=== PATIENT | female | born 1995 | race Caucasian/White ===

== ENCOUNTER 2017-04-20 13:29 | Inpatient (IN) | payer BC, OTHER ==
[2017-04-20 14:04] LABS: APPEARANCE,URINE CLEAR; BILIRUBIN,URINE NEGATIVE (NEGATIVE); GLUCOSE, URINE NEGATIVE (NEGATIVE); KETONES,URINE NEGATIVE (NEGATIVE); LEUKOCYTE ESTERASE,URINE NEGATIVE (NEGATIVE); NITRITE,URINE NEGATIVE (NEGATIVE); PROTEIN,URINE NEGATIVE (NEGATIVE); URINE SPECIFIC GRAVITY 1.003; UROBILINOGEN,URINE NEGATIVE mg/dL (<2.0)
[2017-04-20 14:09] LABS: AMNISURE (ROM) POSITIVE (NEGATIVE)
[2017-04-20] MEDS ORDERED: PENICILLIN G POTASSIUM 5,000,000 UNIT in DEXTROSE 5%-WATER 100 ML IV ONE (14:15)
[2017-04-20] MEDS ORDERED: RINGERS SOLUTION,LACTATED 1,000 ML IV PRN (14:15)
[2017-04-20] MEDS ORDERED: PENICILLIN G-K 5 MILLION UNIT VIAL ONE ×2 (14:20→18:10)
[2017-04-20 14:35] LABS: URINE BARBITURATES SCREEN NEGATIVE; URINE METHADONE SCREEN NEGATIVE; URINE OPIATES LOW NEGATIVE; URINE PHENCYCLIDINE SCREEN NEGATIVE
[2017-04-20 15:45] LABS: ABSOLUTE LYMPHOCYTES (AUTO) 1.5 10^3/uL (0.5-4.7); ABSOLUTE MONOCYTES (AUTO) 0.9 10^3/uL (0.1-1.4); BASOPHILS % (AUTO) 0.2 % (0-2); EOSINOPHILS % (AUTO) 0.2 % (0-6); HEMOGLOBIN 12.2 g/dL (12.0-15.5); HGB HCT DIFFERENCE 1.6; MEAN CORPUSCULAR HEMOGLOBIN 29.8 pg (27.0-33.4); MEAN CORPUSCULAR HGB CONC 34.9 g/dL (32.0-36.0); MEAN CORPUSCULAR VOLUME 85 fl (80-97); RED CELL DISTRIBUTION WIDTH 13.3 % (11.5-14.0); SEGMENTED NEUTROPHILS % (AUTO) 83.6 % (42-78); WHITE BLOOD COUNT 15.5 10^3/uL (4.0-10.5)
[2017-04-20] MEDS ORDERED: OXYTOCIN/NORMAL SALINE 20 UNIT/1,000 ML RTUINJ ONE (16:03)
[2017-04-20] MEDS ORDERED: OXYTOCIN/NORMAL SALINE 20 UNIT/1,000 ML RTUINJ IV PRN (16:24)
[2017-04-20] MEDS ORDERED: NALBUPHINE HCL INJ 10 MG/1 ML AMPULE ONE (17:46)
[2017-04-20] MEDS ORDERED: NALBUPHINE HCL INJ 10 MG/1 ML AMPULE INJ ONE (17:47)
[2017-04-20] MEDS ORDERED: PHENYLEPHRINE HCL INJ/PF 10 MG/1 ML SDV ONE (18:29)
[2017-04-20] MEDS ORDERED: EPHEDRINE SULFATE INJ 50 MG/1 ML AMPULE ONE (18:29)
[2017-04-20] MEDS ORDERED: MISOPROSTOL 0.2 MG TABLET ONE (18:29)
[2017-04-20] MEDS ORDERED: FENTANYL/BUPIVACAINE/NS/PF 0 MCG/0 ML RTUINJ EPI ONE (18:29)
[2017-04-20] MEDS ORDERED: FENTANYL CITRATE INJ/PF 100 MCG/2 ML AMPUL ONE (18:29)
[2017-04-20] MEDS ORDERED: LIDOCAINE 1% INJ-PF (10 MG/ML) 30 ML SDV ONE (18:30)
[2017-04-20] MEDS ORDERED: BUPIVACAINE HCL 0.25 % INJ/PF (2.5 MG/1 ML) 30 ML VIAL ONE (18:30)
[2017-04-20] MEDS ORDERED: PROMETHAZINE HCL 25 MG TABLET PO PRN (21:05)
[2017-04-20] MEDS ORDERED: PROMETHAZINE HCL INJ 25 MG/1 ML VIAL IV PRN (21:05)
[2017-04-20] MEDS ORDERED: MEASLES,MUMPS&RUBELLA VACC/PF 0.5 ML VIAL SUBCUT PRN (21:05)
[2017-04-20] MEDS ORDERED: ACETAMINOPHEN WITH CODEINE #3 TABLET PO PRN ×2 (21:05)
[2017-04-20] MEDS ORDERED: MAGNESIUM HYDROXIDE SUSP 30 ML UDCUP PO PRN (21:05)
[2017-04-20] MEDS ORDERED: ACETAMINOPHEN 650 MG SUPP.RECT PR PRN (21:05)
[2017-04-20] MEDS ORDERED: PROMETHAZINE HCL 25 MG SUPP.RECT PR PRN (21:05)
[2017-04-20] MEDS ORDERED: NA PHOS,M-B/NA PHOS,DI-BA (ADULT) 133 ML ENEMA PR PRN (21:05)
[2017-04-20] MEDS ORDERED: DIBUCAINE 1% OINTMENT 28 GM TP PRN (21:05)
[2017-04-20] MEDS ORDERED: BENZOCAINE/MENTHOL AEROSOL SPRAY 56 ML TOP PRN (21:05)
[2017-04-20] MEDS ORDERED: DIPH/PERTUSS(ACELL)/TETANUS VAC/PF 0.5 ML SYR (>=10YO) IM PRN (21:05)
[2017-04-20] MEDS ORDERED: PSEUDOEPHEDRINE HCL 30 MG TABLET PO PRN (21:05)
[2017-04-20] MEDS ORDERED: GLYCERIN/WITCH HAZEL LEAF 1 EACH MED..PAD TP PRN (21:05)
[2017-04-20] MEDS ORDERED: DIPHENHYDRAMINE HCL 25 MG CAPSULE PO PRN (21:05)
[2017-04-20] MEDS ORDERED: ZOLPIDEM TARTRATE 5 MG TABLET PO PRN (21:05)
--- NOTE | 2017-04-20 22:07 | Admission Physical ---
Datetime Report Generated by CPN: 04/20/2017 22:07 CURRENT ADMISSION Chief Complaint: Uterine Contractions; Suspected Ruptured Membranes Indication for Induction: Term, Intrauterine ; Ruptured Membranes Admit Plan: Initiate Labor Protocol ALLERGIES Medication Allergies: Yes Medication Allergies: sulfamethoxazole (04/20/2017); trimethoprim (04/20/2017) Medication Allergies: bactrim Latex: No Latex Allergies Food Allergies: n/a Environmental Allergies: n/a OBSTETRICAL HISTORY EDC: 05/08/2017 00:00 : 1 Para: 0 Term: 0 : 0 SAB: 0 IAB: 0 Ectopic: 0 Livin Cesareans: 0 VBACs: 0 Multiple Births: 0 Gestational Diabetes: No Rh Sensitization: No Incompetent Cervix: No SULTANA: No Infertility: No ART Treatment: No Uterine Anomaly: No IUGR: No Hx Previous C/S: No Macrosomia: No Hx Loss/Stillborn: No PIH: No Hx : No Placenta Previa/Abruption: No Depression/PP Depression: No PTL/PROM: No Post Hemorrhage: No Current Procedures: Ultrasound Obstetrical History Comments: G1-current SEE RECORDS Alcohol: No Marijuana : No Cocaine: No Other Illicit Drugs: No Cigarettes: Never Smoker. [id number] MEDICAL HISTORY Diabetes: No Blood Transfusion: No Pulmonary Disease (Asthma, TB): No Breast Disease: No Hypertension: No Grain Oilseed Or Pasture Grower Surgery: No Heart Disease: No Hosp/Surgery: No Autoimmune Disorder: No Anesthetic Complications: No Kidney Disease: No Abnormal Pap Smear: No Neuro/Epilepsy: No Psychiatric Disorders: No Other Medical Diseases: No Hepatitis/Liver Disease: No Significant Family History: No Varicosities/Phlebitis: No Trauma/Violence : No Thyroid Dysfunction: No INFECTIOUS HISTORY Gonorrhea: No Genital Herpes: No Chlamydia: No Tuberculosis: No Syphilis: No Hepatitis: No HIV/AIDS Exposure: No Rash or Viral Illness: No HPV: No PHYSICAL EXAM General: Normal Abdomen: Normal Pelvic Type: Adequate Vital Signs: Reviewed VAGINAL EXAM Dilatation: 3 Effacement: 50 Station: 0 MEMBRANES Membranes: Ruptured Amniotic Fluid Color: Clear FETUS A EGA: 37.3 Monitoring: External US FHR- Baseline: 140 Variability: Moderate 6-25bpm Accelerations: 10X10 Decelerations: None Presentation: Vertex PLANS FOR LABOR AND DELIVERY Labor and Delivery: None Pain Management: Medications Feeding Preference: Breast Benefit of Breast Feed Discussed: Yes Circumcision: Yes INFORMED CONSENT Signature: with User ID: [email or web address], Addendum/Amendment: SROM occured at home at 0400. Confirmed on L_D. Admitted at 37wks 3d.
--- NOTE | 2017-04-20 22:59 | Delivery Summary ---
Del Sum A-C Datetime Report Generated by CPN: 04/20/2017 22:59 DELIVERY PERSONNEL DELIVERY PERSONNEL: [id number] Delivery Doctor:: Yannick Phelps MD Labor and Delivery Nurse:: Annalee Paula RNquality assurance tester Nurse:: Samia Wyman RN Nursery Nurse:: Jannie Mack RN Nursery Nurse:: POOJA Rodriguez/GEOTECHNICAL DEPARTMENT MANAGER: Aniyah Mcdonald, ST MATERNAL INFORMATION Delivery Anesthesia: None Medications After Delivery: Pitocin Drip 20 Units/1000ml NSS Estimated Blood Loss (ml): 200 Maternal Complications: Precipitous Labor (<3hrs) Provider Comments: Precipitous vaginal delivery of vigorous male infant from OA with apgars 8/9. No epis but right labia minora tear requiring suturing. LABOR SUMMARY EDC: 05/08/2017 00:00 No. Babies in Womb: 1 Attempted: No Labor Anesthesia: None LABOR INFORMATION Reason for Induction: Not Applicable Onset of Labor: 04/20/2017 17:20 Complete Dilatation: 04/20/2017 19:46 Oxytocin: Augmentation Group B Beta Strep: positive Antibiotics # of Doses: 2 Antibiotics Time of Last Dose: 1846 Name of Antibiotic Given: Penicillin Steroids Given: None Reason Steroids Not Administered: Not Applicable MEMBRANES Membranes Rupture Method: Spontaneous Rupture of Membranes: 04/20/2017 04:00 Length of Rupture (hr): 15.78 Amniotic Fluid Color: Clear Amniotic Fluid Amount: Scant Amniotic Fluid Odor: Normal STAGES OF LABOR Stage 1 hr: 2 Stage 1 min: 26 Stage 2 hr: 0 Stage 2 min: 1 Stage 3 hr: 0 Stage 3 min: 6 Total Time in Labor hr: 2 Total Time in Labor min: 33 VAGINAL DELIVERY Episiotomy: None Laceration Extension #1: Second Degree Laceration Extension #2: First Degree Other Laceration: Left labial; first degree right labial tear not requiring suturing Laceration Repair: Yes Sponge Count Correct: N/A CSECTION DELIVERY Primary Indication: N/A Secondary Indication: N/A CSection Incidence: N/A Labor: N/A Elective: N/A CSection Incision: N/A BABY A INFORMATION Delivery Date/Time: 04/20/2017 19:47 Method of Delivery: Vaginal Born in Route : No : N/A Forceps: N/A Vacuum Extraction: N/A Shoulder Dystocia : No PRESENTATION/POSITION BABY A Presentation: Cephalic Cephalic Presentation: Vertex Breech Presentation: N/A PLACENTA INFORMATION BABY A Placenta Delivery Time : 04/20/2017 19:53 Placenta Method of Delivery: Spontaneous Placenta Status: Delivered SCORES BABY A Heart Rate 1 min: >100 bpm Resp Effort 1 min: Good Cry Reflex Irritability 1 min: Cough or Sneeze or Pulls Away Muscle Tone 1 min: Active Motion Color 1 min: Blue/Pale SCORE 1 MIN: 8 Heart Rate 5 min: >100 bpm Resp Effort 5 min: Good Cry Reflex Irritability 5 min: Cough or Sneeze or Pulls Away Muscle Tone 5 min: Active Motion Color 5 min: Body [place], Extremities Blue SCORE 5 MIN: 9 INFORMATION BABY A Gestational Age at Delivery: 37.3 Gestational Status: Early Term- 37- 38.6 Weeks Infant Outcome : Liveborn Infant Condition : Stable Infant Sex: Male IDENTIFICATION BABY A Verification Date/Time: 04/20/2017 19:47 ID Band Number: [id number] Mother's Name Verified: Yes RN Verifying Infant: K. Davonte, RN Additional Verifying Personnel: B. Mendoza, RN WEIGHT/LENGTH BABY A Infant Birthweight (gm): 3190 Weight (lb): 7 Weight (oz): 1 Infant Length (in): 18.50 Length (cm): 46.99 CORD INFORMATION BABY A No. Cord Vessels: 3 Nuchal Cord : N/A Cord Blood Taken: Yes-For Storage (Mom's Blood type +) Suction: Mouth; Nose ASSESSMENT BABY A Infant Complications: None Physical Findings at Delivery: Within Normal Limits Physical Findings- Other: See full nursery assessment Respirations: Appears Normal Skin to Skin: Yes Skin to Skin Time (min): 75 Overnight Caregiver/ALS Called : No Infant Care By: Noelle Mack/Julisa Ley Transferred To: Remains with Mother BABY B INFORMATION : N/A SIGNATURES Signature: with User ID: [email or web address]
[2017-04-20] MEDS: IBUPROFEN 800 MG TABLET PO SCH (23:09)
[2017-04-20] MEDS: FAMOTIDINE 20 MG TABLET PO SCH (23:09)
[2017-04-21] MEDS ORDERED: INFLUENZA ADLT QUAD (36MOS+) 2017-18 VAC 0.5 ML SYR IM PRN (01:03)
[2017-04-21] MEDS: IBUPROFEN 800 MG TABLET PO SCH ×3 (06:04→21:25)
[2017-04-21 08:51] LABS: HEMATOCRIT 29.8 % (36.0-47.0); HEMOGLOBIN 10.4 g/dL (12.0-15.5); HGB HCT DIFFERENCE 1.4; MEAN CORPUSCULAR HEMOGLOBIN 30.1 pg (27.0-33.4); MEAN CORPUSCULAR HGB CONC 34.9 g/dL (32.0-36.0); MEAN CORPUSCULAR VOLUME 86 fl (80-97); RED BLOOD COUNT 3.45 10^6/uL (3.72-5.28); RED CELL DISTRIBUTION WIDTH 13.1 % (11.5-14.0); WHITE BLOOD COUNT 21.5 10^3/uL (4.0-10.5)
[2017-04-21] MEDS: FAMOTIDINE 20 MG TABLET PO SCH ×2 (09:05→21:25)
[2017-04-21] MEDS: DOCUSATE SODIUM 100 MG CAPSULE PO SCH ×2 (09:05→18:04)
[2017-04-21] MEDS: FERROUS SULFATE 325 MG TABLET PO SCH ×2 (09:06→18:03)
[2017-04-21] MEDS: PRENATAL VITAMIN W DHA CAPSULE PO SCH (09:06)
[2017-04-21] MEDS: SENNOSIDES/DOCUSATE 8.6-50 MG 1 EACH TABLET PO SCH (09:06)
--- NOTE | 2017-04-21 09:53 | PDOC PROGRESS REPORT ---
Subjective-OB Subjective: Post Delivery Day: 21 year old. Denies any needs at this time. tolerating diet, bleeding diminishing and pain controlled. Physical Exam (OB) Vital Signs: Temp Pulse Resp BP Pulse Ox 98.1 F 85 16 126/79 H 100 04/21/17 08:26 04/21/17 08:26 04/21/17 08:26 04/21/17 08:26 04/21/17 08:26 Intake & Output 04/20/17 04/21/17 04/22/17 06:59 06:59 06:59 Weight 86.183 kg - Abdomen Description: Soft Hernia Present: No Fundal Description: Firm, Midline Fundal Height: u/u - u/2 - Abdominal Tenderness: Nontender - Extremities Lower extremities: Jose De Jesus's sign - neg Calf: Nontender Objective-Diagnostic Laboratory: 04/21/17 07:33 04/20/17 04/20/17 04/20/17 13:51 15:28 15:28 WBC 15.5 H RBC 4.10 Hgb 12.2 Hct 35.0 L MCV 85 MCH 29.8 MCHC 34.9 RDW 13.3 Plt Count 162 Seg Neutrophils % 83.6 H Lymphocytes % 10.0 L Monocytes % 6.0 Eosinophils % 0.2 Basophils % 0.2 Absolute Neutrophils 13.0 H Absolute Lymphocytes 1.5 Absolute Monocytes 0.9 Absolute Eosinophils 0.0 Absolute Basophils 0.0 Urine Color STRAW Urine Appearance CLEAR Urine pH 8.0 Ur Specific [place] 1.003 Urine Protein NEGATIVE Urine Glucose (UA) NEGATIVE Urine Ketones NEGATIVE Urine Blood NEGATIVE Urine Nitrite NEGATIVE Ur Leukocyte Esterase NEGATIVE Blood Type A POSITIVE Antibody Screen NEGATIVE 04/21/17 07:33 WBC 21.5 H RBC 3.45 L Hgb 10.4 L Hct 29.8 L MCV 86 MCH 30.1 MCHC 34.9 RDW 13.1 Plt Count 155 Seg Neutrophils % Lymphocytes % Monocytes % Eosinophils % Basophils % Absolute Neutrophils Absolute Lymphocytes Absolute Monocytes Absolute Eosinophils Absolute Basophils Urine Color Urine Appearance Urine pH Ur Specific [place] Urine Protein Urine Glucose (UA) Urine Ketones Urine Blood Urine Nitrite Ur Leukocyte Esterase Blood Type Antibody Screen Assessment and Plan(PN) - Time Spent with Patient Time with patient: Less than 15 minutes - Disposition Anticipated Discharge: Home Within: within 24 hours
[2017-04-22] MEDS: IBUPROFEN 800 MG TABLET PO SCH (05:13)
[2017-04-22 08:34] VITALS: BP 115/60
--- NOTE | 2017-04-22 08:58 | PDOC DISCHARGE SUMMARY ---
Final Diagnosis Discharge Date: 04/22/17 - Final Diagnosis (1) Vaginal delivery Is this a current diagnosis for this admission?: Yes Discharge Data - Discharge Medication Home Medications: Vit,Calc76/Iron/Folic [Prenatabs Rx Tablet] 1 tab PO DAILY 04/20/17 Docusate Sodium [Colace 100 mg Capsule] 100 mg PO BID #60 capsule 04/22/17 Ferrous Sulfate [Feosol 325 mg Tablet] 325 mg PO BID #60 tablet 04/22/17 Ibuprofen [Motrin 800 mg Tablet] 800 mg PO Q8 #60 tablet 04/22/17 Gestational Age: 37.3 Reason(s) for Admission: Onset of Labor, Group B Strep Positive Procedures: NST Intrapartum Procedure(s): Spontaneous Vaginal Delivery - [place] Data Baby 1 Male at 1 minute: 8 at 5 minutes: 9 Weight: 3190 kg Home with Mother: Yes Complications: No - Diagnosis Test Laboratory: Temp Pulse Resp BP Pulse Ox 98.3 F 72 20 115/60 100 04/22/17 08:32 04/22/17 08:32 04/22/17 08:32 04/22/17 07:45 04/22/17 08:32 04/20/17 04/20/17 04/21/17 13:51 15:28 07:33 RBC 4.10 3.45 L Hgb 12.2 10.4 L Hct 35.0 L 29.8 L Urine Opiates Screen NEGATIVE - Discharge information/Instructions Discharge Activity: Activity As Tolerated, Pelvic Rest, No tub bath Discharge Diet: Regular Disposition: HOME, SELF-CARE Follow [facility] with: [facility] in: 4, Weeks
[2017-04-22] MEDS: FAMOTIDINE 20 MG TABLET PO SCH (10:03)
[2017-04-22] MEDS: FERROUS SULFATE 325 MG TABLET PO SCH (10:03)
[2017-04-22] MEDS: SENNOSIDES/DOCUSATE 8.6-50 MG 1 EACH TABLET PO SCH (10:03)
[2017-04-22] MEDS: PRENATAL VITAMIN W DHA CAPSULE PO SCH (10:03)
[2017-04-22] MEDS: DOCUSATE SODIUM 100 MG CAPSULE PO SCH (10:03)
== END 2017-04-22 12:45 | disposition home or self-care (01) | DRG 775 ==
LOC: LC 13:29 → LR 14:19 → 2S 22:05
PROVIDERS: ADMIT Obstetrics & Gynecology; ATTEND Obstetrics & Gynecology
PROC: 10E0XZZ Delivery of Products of Conception, External Approach (ICD-10-PCS; principal; 2017-04-20)
PROC: 0KQM0ZZ Repair Perineum Muscle, Open Approach (ICD-10-PCS; 2017-04-20)
PROC: 3E0234Z Introduction of Serum, Toxoid and Vaccine into Muscle, Percutaneous Approach (ICD-10-PCS; 2017-04-22)
DX: O99.824 Streptococcus B carrier state complicating childbirth (principal); O62.3 Precipitate labor; O70.0 First degree perineal laceration during delivery; O70.1 Second degree perineal laceration during delivery; Z3A.37 37 weeks gestation of pregnancy; Z37.0 Single live birth; Z23 Encounter for immunization
CPT/HCPCS: 36415; 80307; 81005; 84112; 85025; 85027; 86592; 86850; 86900; 86901; 87250; 90686; J2300; J2370; J2540; J2590; J3010; J3490